=== PATIENT | female | born 1990 | race Caucasian/White ===

== ENCOUNTER 2021-12-30 14:14 | Outpatient (CLI) | payer OTHER, SELFPAY ==
[2021-12-30 19:55] LABS: Basophils Percent Auto 0.5 % (0.2-1.2); Eosinophils Absolute Auto 0.1 K/mm3 (0-0.3); Eosinophils Percent Auto 2.9 % (0-4.4); Hematocrit 38.9 % (37.0-47.0); Hemoglobin 12.8 g/dL (12.0-15.0); Immature Granulocyte Absolute 0.01 K/mm3 (0.00-0.031); Immature Granulocyte Percent A 0.2 % (0-0.5); Lymphocytes Absolute Auto 1.27 K/mm3 (0.9-3.2); Lymphocytes Percent Auto 31.1 % (18.3-44.2); Mean Corpuscular HGB Conc 32.9 g/dl (32-36); Mean Corpuscular Hemoglobin 29.8 pg (26-34); Mean Corpuscular Volume 90.5 fl (80-100); Mean Platelet Volume 10.4 fl (7.4-10.4); Monocytes Absolute Auto 0.4 K/mm3 (0.1-0.6); Monocytes Percent Auto 9.1 % (2.6-8.5); Neutrophils Absolute Auto 2.3 K/mm3 (1.3-6.7); Neutrophils Percent Auto 56.2 % (45.5-73.1); Platelet Count Result 226 k/mm3 (150-375); Red Cell Distribution Width 12.6 % (11.5-14.5); White Blood Count 4.1 K/mm3 (4.5-10.0)
[2021-12-30 20:39] LABS: Alanine Aminotransferase 24 U/L (6-35); Albumin Level 4.7 g/dL (3.5-5.1); Alkaline Phosphatase 47 U/L (38-126); Anion Gap 9 mmol/L (8-16); Aspartate Amino Transferase 62 U/L (14-36); Bilirubin,Total 0.6 mg/dL (0.2-1.3); Blood Urea Nitrogen 15 mg/dL (7-17); Calcium 9.1 mg/dL (8.4-10.2); Carbon Dioxide 25 mmol/L (22-30); Chloride 104 mmol/L (98-107); Cholesterol 154 mg/dL (0-200); Estimated Glomerular Filt Rate > 60; Glucose 82 mg/dL (65-110); HDL Direct 60 mg/dL; Potassium 4.1 mmol/L (3.4-5.0); Sodium 138 mmol/L (137-145); Triglycerides 47 mg/dL (<150)
[2021-12-30 20:50] LABS: LDL Cholesterol Direct 67 mg/dL
[2022-01-02 12:04] LABS: Vitamin D 25 Hydroxy 31.7 ng/mL
[2022-01-04 08:34] LABS: Alpha-Tocopherol 8.7 mg/L (5.7-19.9); Beta-Gamma Tocopherol <1.0 mg/L (<=4.3); Vitamin A 35 mcg/dL (38-98)
== END 2021-12-30 14:15 | disposition home or self-care (01) ==
PROVIDERS: PCP Family Medicine; Visit Provider Family Medicine
DX: K58.9 Irritable bowel syndrome, unspecified (principal); Z00.00 Encounter for general adult medical examination without abnormal findings
CPT/HCPCS: 36415; 80053; 80061; 82306; 82607; 84446; 84590; 85025; 86003

== ENCOUNTER 2022-01-03 14:08 | Outpatient (CLI) | payer OTHER, SELFPAY ==
[2022-01-12 22:32] LABS: Pancreatic Elastase, Stool >500 mcg/g
== END 2022-01-03 14:09 | disposition home or self-care (01) ==
LOC: ANHBWCLAB 14:09
PROVIDERS: PCP Family Medicine; Visit Provider Family Medicine
DX: Z00.00 Encounter for general adult medical examination without abnormal findings (principal)
CPT/HCPCS: 82653

== ENCOUNTER 2022-02-27 07:46 | Outpatient (CLI) | payer OTHER, SELFPAY ==
[2022-02-27 19:00] LABS: Alanine Aminotransferase 26 U/L (6-35); Albumin Level 4.4 g/dL (3.5-5.1); Alkaline Phosphatase 47 U/L (38-126); Amylase 100 U/L (30-110); Aspartate Amino Transferase 58 U/L (14-36); Bilirubin,Total 0.4 mg/dL (0.2-1.3); Lipase 209 U/L (23-300)
[2022-02-27 19:30] LABS: Hepatitis B Surface Antigen Negative (Negative)
[2022-02-27 19:48] LABS: Hepatitis C Virus Antibody Negative (Negative)
[2022-02-27 19:59] LABS: HAV RESULT Negative (Negative); Hepatitis B Core IgM Result Negative (Negative)
[2022-03-02 09:50] LABS: Gliadin AB, IgG <1.0 U/mL (<15.0); TTG IGA AB <1.0 U/mL (<15.0); Tissue Transglutaminase IgA Ab <1.0 U/mL (<15.0)
[2022-03-02 13:43] LABS: Endomysial Ab (IgA) Screen Negative (Negative)
== END 2022-02-27 07:47 | disposition home or self-care (01) ==
LOC: ANHBWCLAB 07:47
PROVIDERS: PCP Family Medicine; Visit Provider Family Medicine
DX: R74.01 Elevation of levels of liver transaminase levels (principal); K58.9 Irritable bowel syndrome, unspecified; R10.9 Unspecified abdominal pain
CPT/HCPCS: 36415; 80074; 80076; 82150; 83516; 83690; 86255

== ENCOUNTER 2022-03-08 11:21 | Outpatient (CLI) | payer OTHER, SELFPAY ==
[2022-03-16 16:18] LABS: Calprotectin, Stool 67 mcg/g
== END 2022-03-08 11:22 | disposition home or self-care (01) ==
LOC: ANHBWCLAB 11:21
PROVIDERS: PCP Family Medicine; Visit Provider Family Medicine
DX: K58.9 Irritable bowel syndrome, unspecified (principal); R10.9 Unspecified abdominal pain
CPT/HCPCS: 83993

== ENCOUNTER 2022-07-04 11:40 | Outpatient (CLI) | payer OTHER, SELFPAY ==
[2022-07-04 21:23] LABS: Appearance Urine Clear (Clear); Bacteria Urine Rare /hpf; Bilirubin Urine Negative (Negative); Blood Urine 1+ (Negative); Color Urine Yellow (Yellow); Glucose Urine UA Negative (Negative); Ketones Urine Negative (Negative); Leukocyte Esterase Ur 3+ LEU/UL (Negative); Nitrate Urine Negative (Negative); Non Pathogenic Casts 0-2; Protein Urine Trace mg/dL (Negative); Specific Grav Ur 1.008 (1.001-1.035); Squamous Epithelial Cell Urine None seen /hpf (Few); Urobilinogen Urine 0.2 mg/dL (<2.0); WBC Urine 51-100 /hpf
[2022-07-04 21:25] LABS: Add Urine Microscopic? YES
== END 2022-07-04 11:41 | disposition home or self-care (01) ==
LOC: ANHBWCLAB 11:42
PROVIDERS: PCP Family Medicine; Visit Provider Family Medicine
DX: R31.9 Hematuria, unspecified (principal)
CPT/HCPCS: 81001; 87077; 87086; 87088

== ENCOUNTER 2022-07-18 12:16 | Outpatient (CLI) | payer OTHER, SELFPAY ==
[2022-07-18 20:36] LABS: Appearance Urine Cloudy (Clear); Bacteria Urine 3+ /hpf; Bilirubin Urine Negative (Negative); Blood Urine 2+ (Negative); Color Urine Yellow (Yellow); Glucose Urine UA Negative (Negative); Ketones Urine Negative (Negative); Leukocyte Esterase Ur 3+ LEU/UL (Negative); Nitrate Urine Negative (Negative); Protein Urine Trace mg/dL (Negative); RBC Urine 21-50 /hpf (0-2); Specific Grav Ur 1.012 (1.001-1.035); Squamous Epithelial Cell Urine None seen /hpf (Few); Urobilinogen Urine 0.2 mg/dL (<2.0); WBC Urine >100 /hpf; pH Urine 7.5 (5.0-9.0)
[2022-07-18 20:39] LABS: Add Urine Microscopic? YES
== END 2022-07-18 12:17 | disposition home or self-care (01) ==
LOC: ANHBWCLAB 12:17
PROVIDERS: PCP Family Medicine; Visit Provider Nurse Practitioner
DX: R30.0 Dysuria (principal); R39.15 Urgency of urination
CPT/HCPCS: 81001; 87077; 87086; 87088

== ENCOUNTER 2023-05-07 09:51 | Outpatient (CLI) | payer OTHER, SELFPAY ==
[2023-05-07 18:35] LABS: Hematocrit 41.4 % (37.0-47.0); Hemoglobin 13.5 g/dL (12.0-15.0); Mean Corpuscular HGB Conc 32.6 g/dl (32-36); Mean Corpuscular Hemoglobin 30.5 pg (26-34); Mean Corpuscular Volume 93.7 fl (80-100); Mean Platelet Volume 9.6 fl (7.4-10.4); Platelet Count Result 255 k/mm3 (150-375); Red Blood Count 4.42 M/mm3 (4.2-5.4); Red Cell Distribution Width 12.9 % (11.5-14.5); White Blood Count 4.5 K/mm3 (4.5-10.0)
[2023-05-07 19:02] LABS: Alanine Aminotransferase 16 U/L (6-35); Albumin Level 4.3 g/dL (3.5-5.1); Alkaline Phosphatase 48 U/L (38-126); Anion Gap 4 mmol/L (8-16); Aspartate Amino Transferase 59 U/L (14-36); Bilirubin,Total 0.5 mg/dL (0.2-1.3); Blood Urea Nitrogen 12 mg/dL (7-17); Carbon Dioxide 27 mmol/L (22-30); Chloride 105 mmol/L (98-107); Cholesterol 170 mg/dL (0-200); Estimated Glomerular Filt Rate > 60; Glucose 81 mg/dL (65-110); HDL Direct 81 mg/dL; Magnesium 2.5 mg/dL (1.6-2.3); Potassium 4.2 mmol/L (3.4-5.0); Sodium 136 mmol/L (137-145); Triglycerides 59 mg/dL (<150)
[2023-05-07 19:14] LABS: LDL Cholesterol Direct 75 mg/dL
[2023-05-07 19:54] LABS: Vitamin D 25 Hydroxy 35.1 ng/mL
== END 2023-05-07 09:52 | disposition home or self-care (01) ==
LOC: ANHBWCLAB 09:53
PROVIDERS: PCP Family Medicine; Visit Provider Family Medicine
DX: Z00.00 Encounter for general adult medical examination without abnormal findings (principal); R10.9 Unspecified abdominal pain; K58.9 Irritable bowel syndrome, unspecified; R74.01 Elevation of levels of liver transaminase levels; M62.89 Other specified disorders of muscle
CPT/HCPCS: 36415; 80053; 80061; 82306; 82607; 83735; 85027

== ENCOUNTER 2023-06-09 08:39 | Outpatient (CLI) | payer OTHER, SELFPAY ==
[2023-06-09 09:21] LABS: Cholesterol 161 mg/dL (0-200); HDL Direct 89 mg/dL; Triglycerides 49 mg/dL (<150)
[2023-06-09 09:36] LABS: LDL Cholesterol Direct 67 mg/dL
[2023-06-09 10:37] LABS: Chlamydia trachomatis DETECTED (NOT DETECTE); Neisseria gonorrhoeae PCR NOT DETECTED (NOT DETECTE)
[2023-06-11 16:53] LABS: Rapid Plasma Reagin Non-Reactive (NonReactive)
[2023-06-12 12:29] LABS: HIV 1 2 Ag Ab 4th Gen w Rflxs Nonreactive (Nonreactive)
== END 2023-06-09 08:40 | disposition home or self-care (01) ==
PROVIDERS: PCP Family Medicine; Visit Provider Family Medicine
DX: Z00.00 Encounter for general adult medical examination without abnormal findings (principal); K58.9 Irritable bowel syndrome, unspecified; R10.9 Unspecified abdominal pain; R74.01 Elevation of levels of liver transaminase levels
CPT/HCPCS: 36415; 80061; 86592; 87389; 87491; 87591

== ENCOUNTER 2023-07-31 11:19 | Outpatient (CLI) | payer OTHER, SELFPAY ==
[2023-07-31 19:10] LABS: Free T4 Free Thyroxine 1.35 ng/mL (0.78-2.19)
[2023-07-31 21:24] LABS: Thyroid Stimulating Hormone 0.964 uIU/mL (0.465-4.680)
[2023-08-02 07:18] LABS: Thyroid Peroxidase Antibodies 15 IU/mL (<9)
== END 2023-07-31 11:20 | disposition home or self-care (01) ==
LOC: ANHBWCLAB 11:20
PROVIDERS: PCP Family Medicine; Visit Provider Family Medicine
DX: R94.6 Abnormal results of thyroid function studies (principal)
CPT/HCPCS: 36415; 84439; 84443; 84481; 86376

== ENCOUNTER 2024-01-08 12:19 | Outpatient (CLI) | payer OTHER, SELFPAY ==
[2024-01-08 18:47] LABS: Hematocrit 41.3 % (37.0-47.0); Hemoglobin 13.9 g/dL (12.0-15.0); Mean Corpuscular HGB Conc 33.7 g/dl (32-36); Mean Corpuscular Hemoglobin 31.4 pg (26-34); Mean Corpuscular Volume 93.4 fl (80-100); Platelet Count Result 309 k/mm3 (150-375); Red Blood Count 4.42 M/mm3 (4.2-5.4); Red Cell Distribution Width 13.1 % (11.5-14.5); White Blood Count 6.6 K/mm3 (4.5-10.0)
[2024-01-08 19:17] LABS: Alanine Aminotransferase 25 U/L (6-35); Albumin Level 4.9 g/dL (3.5-5.1); Alkaline Phosphatase 57 U/L (38-126); Anion Gap 10 mmol/L (4-12); Aspartate Amino Transferase 45 U/L (14-36); Bilirubin,Total 0.8 mg/dL (0.2-1.3); Blood Urea Nitrogen 11 mg/dL (7-17); Calcium 9.7 mg/dL (8.4-10.2); Carbon Dioxide 26 mmol/L (22-30); Chloride 101 mmol/L (98-107); Estimated Glomerular Filt Rate > 60; Glucose 87 mg/dL (65-110); Potassium 4.1 mmol/L (3.4-5.0); Sodium 137 mmol/L (137-145)
[2024-01-08 19:20] LABS: Free T4 Free Thyroxine 1.39 ng/mL (0.78-2.19); Vitamin D 25 Hydroxy 33.9 ng/mL
== END 2024-01-08 12:20 | disposition home or self-care (01) ==
LOC: ANHBWCLAB 12:20
PROVIDERS: PCP Family Medicine; Visit Provider Family Medicine
DX: Z00.00 Encounter for general adult medical examination without abnormal findings (principal); E55.9 Vitamin D deficiency, unspecified; R94.6 Abnormal results of thyroid function studies; R74.01 Elevation of levels of liver transaminase levels
CPT/HCPCS: 36415; 80053; 82248; 82306; 84439; 84443; 85027

== ENCOUNTER 2024-02-04 13:33 | Outpatient (CLI) | payer OTHER, SELFPAY ==
[2024-02-04 22:03] LABS: Chlamydia trachomatis NOT DETECTED (NOT DETECTE); Neisseria gonorrhoeae PCR NOT DETECTED (NOT DETECTE)
[2024-02-05 07:12] LABS: Rapid Plasma Reagin Non-Reactive (NonReactive)
[2024-02-06 06:39] LABS: HIV 1 2 Ag Ab 4th Gen w Rflxs NON-REACTIVE (NON-REACTIVE)
== END 2024-02-04 13:34 | disposition home or self-care (01) ==
PROVIDERS: PCP Family Medicine; Visit Provider Family Medicine
DX: M62.89 Other specified disorders of muscle (principal)
CPT/HCPCS: 36415; 86592; 87389; 87491; 87591

== ENCOUNTER 2024-09-16 11:02 | Outpatient (CLI) | payer BC, SELFPAY ==
--- OUTSIDE RECORDS SUMMARY | 2024-09-16 11:28 | XMS_ITS | Clinical Summary ---
Author Organization [facility] Address [address] [place] [address] Phone Care Team Providers Care Expenditure Requisition Clerk Name Role Phone Tristan Alfonso MD Primary Care Provider [phone] Allergies No known active allergies Medications Multiple Vitamins-Minera ls (BARIATRIC MULTIVITAMINS/I SCARLET PO) Take by mouth. Active Motegrity 2 MG Tablet TAKE 1 TABLET BY MOUTH EVERY MORNING 12/22/2020 Active Active Problems No known active problems Social History Tobacco Use Types Packs/Day Years Used Date Smoking Tobacco: Never Smokeless Tobacco: Never Tobacco Cessation:Counseling Given: Yes Alcohol Use Standard Drinks/Week Comments Not Currently 0 (1 standard drink = 0.6 oz pur e alcohol) AUDIT-C Answer Date Recorded Q1: How often do you have a drink containing alc ohol? 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 Gender Identity Not on file Sexual Orientation Not on file Last Filed Vital Signs Vital Sign Reading Time Taken Comments Blood Pressure 100/64 04/18/2021 9:26 AM CLAY HOUSE WORKER Pulse 78 04/18/2021 9:26 AM CLAY HOUSE WORKER Temperature 36.3 C (97.3 F) 04/18/2021 9:26 AM CLAY HOUSE WORKER Respiratory Rate 18 04/18/2021 9:26 AM CLAY HOUSE WORKER Oxygen Saturation 98% 04/18/2021 9:26 AM CLAY HOUSE WORKER Inhaled Oxygen Concentration - - Weight 62.6 kg (138 lb) 04/18/2021 9:26 AM CLAY HOUSE WORKER Height 165.1 cm (5' 5) 03/21/2020 8:10 AM CLAY HOUSE WORKER Body Mass Index 22.96 03/21/2020 8:10 AM CLAY HOUSE WORKER Plan of Treatment Health Maintenance Due Date Last Done Comments Hepatitis C Virus (HCV) Screening 1990 Human Papillomavirus (HPV) Immunization (1 - 3-dose series) 2006 Hepatitis B Immunization (1 of 3 - 19+ 3-dose series) 2010 SARS-COV-2 Immunization ( - 2023- season) 2023 Influenza Immunization (Seas on Ended) 2024 Respiratory Syncytial Virus (RSV) Immunization (Adult) (1 - 1-dose 75+ series) 2066 DTaP/Tdap/Td Immunization Discontinued 2015, 08/12/2013 TdaP Immunization Completed 03/28/2015, 08/12/2013 Meningococcal Immunization (ACWY) Aged Out No longer eligible based on patient's age to complete this topic Pneumococcal Immunization Combined Aged Out No longer eligible based on patient's age to complete this topic Rotavirus Immunization Aged Out No lo nger eligible based on patient's age to complete this topic Insurance OAP Care Teams Expenditure Requisition Clerk Relationship Specialty Start Date End Date Tristan Alfonso MD [address] [place] [address] PCP - General Internal Medicine 02/20/20
--- OUTSIDE RECORDS SUMMARY | 2024-09-16 11:28 | XMS_ITS | Referral Summary ---
Author Organization [facility] [address] Address [address] [place] [address] Care Team Providers Care Paraprofessional Aide Teacher Name Role Phone Prakash Perkins MD Primary Care Provider [phone] Encounters Date Type Department Care Team Description 09/10/2024 Orders Only Miguel Sullivan [address] [facility] [address] [place] [address] Nikki Paz NP Cyst of ovary, unspecified laterality (Primary Dx) 09/10/2024 Results Follow-Up Miguel Sullivan [address] [facility] [address] [place] [address] Nikki Paz, GLENIS US Pelvis W Endovaginal 08/18/2024 Telephone Miguel Sullivan [address] [facility] [address] [place] [address] Emily Bowman 08/17/2024 11:30 AM CDT Office Visit [facility] [address] [facility] [address] [place] [phone] Noemy Sotomayor NP Laceration of left ankle, initial encounter (Primary Dx) 08/15/2024 Telephone Miguel Sullivan [address] [facility] [address] [place] [address] Emily Bowman 08/14/2024 Telephone Miguel Sullivan [address] [facility] [address] [place] [address] Emily Bowman 08/04/2024 2:30 PM CDT Ancillary Procedure Carolinekarly Sullivan [address] [facility] [address] [place] [address] History of ovarian cyst 07/02/2024 Results Follow-Up [facility] Cardiology [address] [facility] [address] [place] [address] Gissel Santos NP Stress Echo Exercise W Doppler/CF 06/27/2024 Results Follow-Up Miguelkarly [facility] [address] [facility] [address] [place] [address] Nikki Paz NP US Pelvis W Endovaginal 06/23/2024 9:15 AM CDT Ancillary Procedure [facility] Cardiology [address] [place] [address] Other chest pain from Last 3 Months Allergies No known active allergies Medications ondansetron ODT (ZOFRAN-ODT) 4 mg disintegrating tablet Dissolve 1 tablet for mild to moderate nausea or vomiting or 2 tablets for severe nausea or vomiting oral twice a day as needed. 15 tablet 05/01/19 20 Active gsdraoaz-bpm-fmwzz us sulfate (One Daily Multi-Vit w-Mineral) 4.5 mg iron powder in packet Take by mouth Active cholecalciferol (VITAMIN D-3) 50,000 unit capsule Take 1 capsule (50,000 Units total) by mouth 07/30/19 24 Active doxycycline (ADOXA) 100 mg tablet Take 1 tablet (100 mg total) by mouth 2 (two) times a day 06/11/19 24 Active modafiniL (PROVIGIL) 200 mg tablet Take 1 tablet (200 mg total) by mouth daily as needed 05/08/19 24 Active etonogestreL-ethin yl estradioL (NUVARING, ELURYNG) 0.12-0.015 mg/24 hr vaginal ringIndications:Pr egnancy Contraception Insert vaginally and leave in place for 3 consecutive weeks, then remove for 1 week. 3 each 1 02/12/20 24 025 Active cephalexin (KEFLEX) 500 mg capsuleIndications :Laceration of left ankle, initial encounter Take 1 capsule (500 mg total) by mouth 2 (two) times a day for 7 days 14 capsule 08/18/19 25 025 Active Problems Problem Noted Date Diagnosed Date Other chest pain 05/19/2024 Contraceptive management 02/12/2024 Assessment & Plan (02/13/2024 8:07 AM WHOLESALE MANAGER): Discussed all control options available to patient at visit. Patient was counseled on benefits as well as side effects and risks of each method. - Patient informed that any form of control can make some women prone to wait gain, however studies show that most methods use today have very low percentage of weight gain listed as adverse effect. Depo-Provera, however has been shown to have higher percentage of weight gain. Patient is specifically interested the ParaGard IUD. I did inform patient this is a very effective long-term method against , however it will not help with her irregular menstrual cycles. Patient is going to check with insurance to see if ParaGard discovered. I did mentioned [facility] For now we are going to try the NuvaRing for cycle management and contraception. Usage instructions given, backup method x1 month advised. Prescription sent to pharmacy. Irregular menstrual cycle 02/12/2024 Cervical strain 02/24/2019 Assessment & Plan (02/24/2019 1:13 PM WHOLESALE MANAGER): Assessment Cervical strain. Plan Acceptance of her condition from a cervical spine standpoint. The patient may need for further work-up with Dr. Casanova for evaluation of thoracic outlet syndrome. Immunizations Immunization Administration Dates Next Due Tdap 08/17/2024 Social History Tobacco Use Types Packs/Day Years Used Date Smoking Tobacco: Former Cigarettes Q uit: 2013 Smokeless Tobacco: Never Tobacco Cessation:Counseling Given: Not Answered Alcohol Use Standard Drinks/Week Comments Never 0 (1 standard drink = 0.6 oz pur e alcohol) AUDIT-C Answer Date Recorded Frequency of Alcohol Consumption Never 01/02/2019 Average Number of Drinks Not on file 019 Frequency of Binge Drinking Not on file 12/17 PHQ-2 Answer Date Recorded PHQ-2 Score 0 02/19/2019 Personal Safety Answer Date Recorded Have you ever been in or are you currently in a harmful physical or emotional relationship or is someone making you feel afraid or unsafe? Denies 12/18/2023 Comments No Sex and Gender Information Value Date Recorded Sex Assigned at Not on file Legal Sex Female 11:29 PM WHOLESALE MANAGER Gender Identity Not on file Sexual Orientation Not on file Last Filed Vital Signs Vital Sign Reading Time Taken Comments Blood Pressure 120/80 08/17/2024 11:27 AM CDT Pulse 85 08/17/2024 11:27 AM CDT Temperature 36.6 C (97.8 F) 08/17/2024 11:27 AM CDT Respiratory Rate 12 08/17/2024 11:27 AM CDT Oxygen Saturation 99% 08/17/2024 11:27 AM CDT Inhaled Oxygen Concentration - - Weight 64.4 kg (142 lb) 08/17/2024 11:27 AM CDT Height 165.1 cm (5' 5) 08/17/2024 11:27 AM CDT Body Mass Index 23.63 08/17/2024 11:27 AM CDT Plan of Treatment Not on file Procedures Procedure Name Priority Date/Time Associated Diagnosis Comments US PELVIS W ENDOVAGINAL Routine 08/04/2024 2:49 PM CDT History of ovarian cyst STRESS ECHO EXERCISE WO DOPPLER/CF WO CONTRAST Routine 06/23/2024 9:55 AM CDT Other chest pain HEPATITIS C ANTIBODY Routine 08/21/2023 2:13 PM CDT Screening for STD (sexually transmitted disease) PAP AND HPV, REFLEX TO HPV GENOTYPES Routine 08/21/2023 2:10 PM CDT Well woman exam from Last 3 Months or Most Recently Relevant to Health Maintenance Results * US Pelvis W Endovaginal (08/04/2024 2:49 PM CDT) Cul de Sac Free fluid visualized VIEWPOINT Endometrial Thickness 10.3 mm&millim eters VIEWPOINT Anatomical Region Laterality Modality Pelvis N/A Ultrasound 08/04/2024 2:26 PM CDT Impressions 08/11/2024 9:37 PM CDT 1. Normal appearing uterus. 2. Normal appearing right ovary. 3. Left ovary contains a complex area measuring 26 x 15 x 28 mm thought to be an involuting cyst. Previously seen septated cyst is not seen. Consider another repeat TV US in 8 weeks to assure resolution. 4. Trace fluid in the cul-de-sac. Narrative Procedure Note Jax Carroll MD - 08/11/2024 IMPRESSION: 1. Normal appearing uterus. 2. Normal appearing right ovary. 3. Left ovary contains a complex area measuring 26 x 15 x 28 mm thoughtto be an involuting cyst. Previously seen septated cyst is not seen.Consider another repeat TV US in 8 weeks to assure resolution. 4. Trace fluid in the cul-de-sac. us Nikki Paz PRIMER CHARGER IMG US PROCEDURES Final Result * STRESS ECHO EXERCISE WO DOPPLER/CF WO CONTRAST (06/23/2024 9:55 AM CDT) Anatomical Region Laterality Modality Ultrasound 06/23/2024 9:05 AM CDT Narrative 06/23/2024 3:42 PM CDT [facility] Cardiology [address] [facility] [address] [address] [address] [facility] [address] [place] [address], [place] [address] P:[phone] P:[phone] Echocardiographic Report Patient Name: PAM MCWILLIAMS : 1990 Study Date: 06/23/2024 9:05:06 AM Gender: F Tech: Location: [facility] Provider: CHRISTIANO AVILES Height(Cm): 165 BSA: 1.72 Weight(Kg): 64.4 Heart Rate: 79 BP: 118/72 Quality: Good Order Provider: CHRISTIANO AVILES PROCEDURES: Stress Echo Report: Treadmill stress echocardiogram. INDICATIONS: Chest Pain, Medications: Vitamin D3, Multivitamin, and Stress test monitored by: Jessica Ruiz RN. FINDINGS: Stress Echo: Protocol - Anish Protocol. Exercise Time - 11.00 min Baseline Heart Rate - 101 Peak Heart Rate - 175 Predicted Maximal Heart Rate - 187 85% MPHR - 159 Baseline BP - 118/72 Peak BP - 154/80 Rate Pressure Product - 51735 METS Achieved - 12.80 Percent Predicted Maximal HR Achieved - 94 % Interpretation Site: Exam was interpreted at [facility]. Performance: Average exercise functional capacity. Hemodynamic Response: Normal blood pressure response. Termination: Fatigue. Resting ECG: Normal sinus rhythm. Non-specific T-wave flattening. Exercise ECG: Normal exercise ECG. Resting LV Function: Normal left ventricular size, normal systolic function, normal wall thickness with no segmental wall motion abnormalities at rest. Post Stress LV Function: Post exercise left ventricular global systolic contractility is hyperdynamic, no segmental wall motion abnormalities, and chamber size is smaller. CONCLUSIONS: Protocol - Anish Protocol. Exercise Time - 11.00 min. Baseline Heart Rate - 101. Peak Heart Rate - 175. Predicted Maximal Heart Rate - 187. 85% MPHR - 159. Baseline BP - 118/72. Peak BP - 154/80. Rate Pressure Product - 41586. METS Achieved - 12.80. Percent Predicted Maximal HR Achieved - 94 %. Normal sinus rhythm. Non-specific T-wave flattening. Normal exercise ECG. Normal left ventricular size, normal systolic function, normal wall thickness with no segmental wall motion abnormalities at rest. Post exercise left ventricular global systolic contractility is hyperdynamic, no segmental wall motion abnormalities, and chamber size is smaller. Stress echocardiogram negative for inducible ischemia at MPHR: 94 %. Electronically Signed By: Christiano Aviles MD, [facility] 06/23/2024 3:42:00 PM CDT Procedure Note Christiano Aviles MD - 06/23/2024 [facility] Cardiology [address] [facility] [address], [place] [id number] [address] [facility] [address], [place] [address] P:[phone] P:[phone] Echocardiographic Report Patient Name: PAM MCWILLIAMS : 1990 Study Date: 06/23/2024 9:05:06 AM Gender: F Tech: Location: [place] Ref Provider: CHRISTIANO AVILES Height(Cm): 165 BSA: 1.72 Weight(Kg): 64.4 Heart Rate: 79 BP: 118/72 Quality: Good Order Provider: CHRISTIANO AVILES PROCEDURES: Stress Echo Report: Treadmill stress echocardiogram. INDICATIONS: Chest Pain, Medications: Vitamin D3, Multivitamin, and Stress testmonitored by: Jessica Ruiz RN. FINDINGS: Stress Echo: Protocol - Anish Protocol. Exercise Time - 11.00 min Baseline Heart Rate - 101 Peak Heart Rate - 175 Predicted Maximal Heart Rate - 187 85% MPHR - 159 Baseline BP - 118/72 Peak BP - 154/80 Rate Pressure Product - [id number] METS Achieved - 12.80 Percent Predicted Maximal HR Achieved - 94 % Interpretation Site: Exam was interpreted at [facility]. Performance: Average exercise functional capacity. Hemodynamic Response: Normal blood pressure response. Termination: Fatigue. Resting ECG: Normal sinus rhythm. Non-specific T-wave flattening. Exercise ECG: Normal exercise ECG. Resting LV Function: Normal left ventricular size, normal systolic function, normal wallthickness with no segmental wall motion abnormalities at rest. Post Stress LV Function: Post exercise left ventricular global systolic contractility ishyperdynamic, no segmental wall motion abnormalities, and chamber size is smaller. CONCLUSIONS: Protocol - Anish Protocol. Exercise Time - 11.00 min. Baseline Heart Rate- 101. Peak Heart Rate - 175. Predicted Maximal Heart Rate - 187. 85% MPHR - 159.Baseline BP - 118/72. Peak BP - 154/80. Rate Pressure Product - [id number]. METS Achieved -12.80. Percent Predicted Maximal HR Achieved - 94 %. Normal sinus rhythm. Non-specific T-wave flattening. Normal exercise ECG. Normal left ventricular size, normal systolic function, normal wallthickness with no segmental wall motion abnormalities at rest. Post exercise left ventricular global systolic contractility ishyperdynamic, no segmental wall motion abnormalities, and chamber size is smaller. Stress echocardiogram negative for inducible ischemia at MPHR: 94 %. Electronically Signed By: Christiano Aviles MD, [facility] 06/23/2024 3:42:00 PM CDT us Christiano Aviles MD CV ECHO PROCEDURES Final Result * Hepatitis C antibody Blood (08/21/2023 2:13 PM CDT) Pathologist [facility] Hep C Ab Nonreactive Nonreactive Comment: Interpretive Data Nonreactive: Antibodies to HCV not detected. Does NOT exclude the possibility of recent exposure to HCV. Equivocal: Equivocal for HCV antibodies. Supplemental molecular testing will be automatically performed to determine infection status in accordance with current CDC screening recommendations. Reactive: Positive for HCV antibodies. This may represent current or past HCV infection. Supplemental molecular testing will be automatically performed to determine current infection status in accordance with current CDC screening recommendations. Interpretive data was last revised on 2019. Testing performed by: [facility], [address] [place] [address]., [id number] Blood 08/21/2023 2:13 PM CDT 08/21/2023 8:29 PM CDT us Nikki Paz PRIMER CHARGER LAB MICROBIOLOGY - GENERAL ORDER NATALIA Edited Result - Final [facility] [place] [address] [facility] Department [place] [address] * Pap and HPV, reflex to HPV Genotypes (08/21/2023 2:10 PM CDT) Pathologist [facility] CLINICAL INFORMATION: [facility] Comment:Routine exam LMP [facility] Comment:[id number] Previous Pap [facility] Comment:NONE GIVEN Prev. Bx [facility] Comment:NONE GIVEN SOURCE: [facility] Comment:Cervix, Endocervix Pap, specimen adequacy [facility] Comment: Satisfactory for evaluation. Endocervical/transformation zone component present. HPV interp [facility] Comment: Cytology Results: Negative for intraepithelial lesion or malignancy. Reactive cellular changes associated with repair COMMENTS [facility] Comment: This Pap test has been evaluated with computer assisted technology. HYPERKERATOSIS Carry Out Clerk Que [facility] Comment: CAN, CT(ASCP) CT screening location: [place] [address] Administration MABEL Bauman [address] Pathologist [facility] Comment: Jean-Pierre Vega M.D., Board Certified in Anatomic Pathology and Cytopathology. (electronic signature) Comment [facility] Comment: EXPLANATORY NOTE: The Pap is a screening test for cervical cancer. It is not a diagnostic test and is subject to false negative and false positive results. It is most reliable when a satisfactory sample, regularly obtained, is submitted with relevant clinical findings and history, and when the Pap result is evaluated along with historic and current clinical information. Human papillomavirus DNA, High Risk E6/E7 Not Detected NOT DETECTED Adeel Mojica /Marti [place] eusebio [place] Comment: Not Detected High Risk HPV types (16,18,31,33,35,39,45,51,52, 56,58,59,66,68) were not detected. Other HPV types which cause anogenital lesions may be present. The significance of the other types of HPV in malignant processes has not been established. Methodology: Real Time PCR Thin prep 08/21/2023 2:10 PM CDT 08/22/2023 3:31 AM CDT Nikki Paz PR[facility] LAB CYTOLOGY ORDERABLES Final Re sult [facility] [address] [address] [place] [address] Adeel Mojica[place] [address] [facility] [place] [address] from Last 3 Months or Most Recently Relevant to Health Maintenance Insurance [place] [id number] [place] [id number] [place] [address] [employer] [facility] Member Subscriber Plan / Payer (Ef fective for All Dates) Name:Pam Mcwilliams Member ID:[id number] Relation to Subscriber:Self Name:Pam Mcwilliams Subscriber ID:[id number] Payer ID:[id number] Type:[employer] HMO/PPO Address: [address] [address] [place] [id number] Care Teams Paraprofessional Aide Teacher Relationship Specialty Start Date End Date Prakash [place] MD PCP - General Family Practice 04/20/22
--- OUTSIDE RECORDS SUMMARY | 2024-09-16 11:28 | XMS_ITS | Encounter Summary ---
Author Organization [facility] Healthcare Address [address] [place] [address] Care Team Providers Care Hardwood Faller Name Role Phone Prakash [place] MD Primary Care Provider [phone] Encounter Details Date Type Department Care Team (Late st Contact Info) Description 09/10/2024 Results Follow-Up [facility] [address] [facility] [address] [place] [address] Nikki Paz, HOTEL ASSISTANT MANAGER [address] [facility] [address] [address] US Pelvis W Endovaginal Social History Tobacco Use Types Packs/Day Years Used Date Smoking Tobacco: Former Cigarettes Q uit: 2013 Smokeless Tobacco: Never Alcohol Use Standard Drinks/Week Comments Never 0 [...] on file 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
--- OUTSIDE RECORDS SUMMARY | 2024-09-16 11:28 | XMS_ITS | Clinical Summary ---
Author Organization [facility] [address] [place] [address] Care Team Providers Care Mold Clamper Name Role Phone Prakash Perkins MD Primary Care Provider [phone] Allergies No known active allergies Medications ondansetron ODT (ZOFRAN-ODT) 4 mg disintegrating tablet Dissolve 1 tablet for mild to moderate nausea or vomiting or 2 tablets for severe nausea or vomiting oral twice a day as needed. 15 tablet 05/01/19 20 Active iugxbeio-vot-qspay us sulfate (One Daily Multi-Vit w-Mineral) 4.5 [...] 02/12/2024 Assessment & Plan (02/13/2024 8:07 AM [employer]): Discussed all control options available to patient [...] 02/24/2019 Assessment & Plan (02/24/2019 1:13 PM [employer]): Assessment Cervical strain. Plan Acceptance of her condition from a cervical spine standpoint. The patient may need for further work-up with Dr. Casanova for evaluation of thoracic outlet syndrome. Encounters Date Type Department Care Team Description 09/10/2024 Orders Only Miguel Sullivan [address] [place] [address] [address] [place] [address] Nikki Paz NP Cyst of ovary, unspecified laterality (Primary Dx) 09/10/2024 Results Follow-Up Miguel Sullivan [address] [place] [address] [address] [place] [address] Nikki Paz, GLENIS US Pelvis W Endovaginal 08/18/2024 Telephone [facility] [address] [place] [address] [address] [place] [address] Emily Bowman 08/17/2024 11:30 AM CDT Office Visit [facility] at [address] [place] [phone] Noemy Sotomayor NP Laceration of left ankle, initial encounter (Primary Dx) 08/15/2024 Telephone [facility] [address] [facility] [address] [place] [phone] Emily Bowman 08/14/2024 Telephone [facility] [address] [facility] [address] [place] [phone] Emily Bowman 08/04/2024 2:30 PM CDT Ancillary Procedure Miguel [facility] [address] [facility] [address] [place] [address] History of ovarian cyst 07/02/2024 Results Follow-Up [facility] [address] [facility] [address], [place] [address] Gissel Santos NP Stress Echo Exercise W Doppler/CF 06/27/2024 Results Follow-Up [facility] [address] [facility] [address] [place] [phone] Nikki Paz NP US Pelvis W Endovaginal 06/23/2024 9:15 AM CDT Ancillary Procedure [facility] Cardiology [address] [place] [phone] Other chest pain from Last 3 Months Immunizations Immunization Administration Dates Next Due Tdap 08/17/2024 Surgical History Surgery Date Site/Laterality Comments OTHER SURGICAL HISTORY oral surg. @ [facility] STOMACH SURGERY HERNIA REPAIR BARIATRIC SURGERY 03/19/2018 - 03/18/2019 BREAST SURGERY implants ABDOMINAL SURGERY tummy tuck ARM SURGERY arm lift Medical History Medical History Date Comments Anxiety Depression Cysts of both ovaries GERD (gastroesophageal reflux disease) Family History Medical History Relation Name Comments No Known Problems Father Alzheimer's disease Maternal Grandfather Diabetes Maternal Grandmother Heart attack Mother Ovarian cancer Mother Stroke Mother Breast cancer Neg Hx Relation Name Status Comments Father Maternal Grandfather Maternal Grandmother Mother Alive Social History Tobacco Use Types Packs/Day Years [...] on file Legal Sex Female 11:29 PM [employer] Gender Identity Not on file Sexual Orientation Not on file Obstetrics History Para Term AB IAB SAB Ectopic Multiple Livin g Live Births 2 1 1 0 1 0 0 0 0 1 1 Date Outcome GA Total Labor Labor/2nd/3rd Weight Sex Type Anes PTL Sabrina A1 A5 Name Clin AB 2016 Term Vag-S pont Living Complications:None Last Filed Vital Signs Vital Sign Reading [...] 08/17/2024 11:27 AM CDT Plan of Treatment Health Maintenance Due Date Last Done Comments Varicella Vaccines (1 of 2 - 13+ 2-dose series) 2004 Hepatitis B Screening 2009 Depression Screening 02/20/2020 02/19/2019, 02/19/2019 Regular Well Visit/Exam 18-64 07/27/2023, 07/20/2021 Cervical Cancer Screening 08/20/2024 08/21/2023 Influenza Vaccine (Season Ended) 2024 12/18/2022, 12/29/2021 DTaP/Tdap/Td Vaccine (4 - Td or Tdap) 08/17/2034 08/17/2024, 03/28/2015, 08/12/2013 Hepatitis C Screening Completed 08/21/2023 HPV Vaccines Aged Out No longer eligi ble based on patient's age to complete this topic Pneumococcal vaccine <65 Aged Out No longer eligible based on patient's age to complete this topic Procedures Procedure Name Priority Date/Time Associated Diagnosis [...] fluid in the cul-de-sac. us Nikki Paz NP IMG US PROCEDURES Final Result * STRESS ECHO EXERCISE WO DOPPLER/CF WO CONTRAST (06/23/2024 9:55 AM CDT) Anatomical Region Laterality Modality Ultrasound 06/23/2024 9:05 AM CDT Narrative 06/23/2024 3:42 PM CDT [facility] [address] [facility] [address], [place] [address] [address] [facility] [address], [place] [address] P:[phone] P:[phone] Echocardiographic Report Patient Name: PAM MCWILLIAMS : 1990 Study Date: 06/23/2024 9:05:06 AM Gender: F Tech: Location: [facility] Provider: CHRISTIANO AVILES Height(Cm): 165 BSA: 1.72 [...] BP - 154/80 Rate Pressure Product - 20017 METS Achieved - 12.80 Percent Predicted Maximal HR Achieved - 94 % Interpretation Site: Exam was interpreted at [facility]. Performance: Average exercise functional capacity. Hemodynamic Response: [...] BP - 154/80. Rate Pressure Product - 23127. METS Achieved - 12.80. Percent Predicted Maximal [...] %. Electronically Signed By: Christiano Aviles MD, [facility] 06/23/2024 3:42:00 PM CDT Procedure Note Christiano Aviles MD - 06/23/2024 [facility] [address] [facility] [address] [address] [address] [facility] [address], [place] [address] P:[phone] P:[phone] Echocardiographic Report Patient Name: PAM MCWILLIAMS : 1990 Study Date: 06/23/2024 9:05:06 AM Gender: F Tech: Location: [place] Ref Provider: CHRISTIANO AVILES Height(Cm): 165 BSA: [...] BP - 154/80 Rate Pressure Product - 59037 METS Achieved - 12.80 Percent Predicted Maximal HR Achieved - 94 % Interpretation Site: Exam was interpreted at [facility]. Performance: Average exercise functional capacity. Hemodynamic Response: [...] BP - 154/80. Rate Pressure Product - 83072. METS Achieved -12.80. Percent Predicted Maximal HR [...] %. Electronically Signed By: Christiano Aviles MD, FACC 06/23/2024 3:42:00 PM CDT us Christiano Aviles MD CV ECHO PROCEDURES Final Result * Hepatitis C antibody Blood (08/21/2023 2:13 PM CDT) Hep C Ab Nonreactive Nonreactive Comment: Interpretive [...] last revised on 2019. Testing performed by: [facility], [address] [place] [address]., [id number] Blood 08/21/2023 2:13 PM CDT 08/21/2023 8:29 PM CDT us Nikki Paz NP LAB MICROBIOLOGY - GENERAL ORDER NATALIA Edited Result - Final STEFANY BAZ (TERRE HAUTE [address] [facility] Department [place] [address] * Pap and HPV, reflex to HPV Genotypes (08/21/2023 2:10 PM CDT) CLINICAL INFORMATION: [facility] Comment:Routine exam LMP [employer] [facility] Comment:[phone] Previous Pap [facility] [employer] [facility] Comment:NONE GIVEN Prev. Bx [employer] [facility] Comment:NONE GIVEN SOURCE: [employer] [facility] Comment:Cervix, Endocervix Pap, specimen adequacy [facility] [employer] [facility] Comment: Satisfactory for evaluation. Endocervical/transformation zone component present. HPV interp [facility] [facility] Comment: Cytology Results: Negative for intraepithelial lesion or malignancy. Reactive cellular changes associated with repair COMMENTS [facility] [facility] Comment: This Pap test has been evaluated with computer assisted technology. HYPERKERATOSIS [employer] [facility] Comment: CAN, CT(ASCP) CT screening location: [place] [address] [address] M[address]EL Bauman [address] Pathologist [facility] Comment: Jean-Pierre Vega M.D., Board Certified in Anatomic Pathology and Cytopathology. (electronic signature) Comment [facility] Comment: EXPLANATORY NOTE: The Pap is a [...] High Risk E6/E7 Not Detected NOT DETECTED [facility] Comment: Not Detected High Risk HPV types (16,18,31,33,35,39,45,51,52, 56,58,59,66,68) were not detected. Other HPV types which cause anogenital lesions may be present. The significance of the other types of HPV in malignant processes has not been established. Methodology: Real Time PCR Thin prep 08/21/2023 2:10 PM CDT 08/22/2023 3:31 AM CDT Nikki Paz NP LAB CYTOLOGY ORDERABLES Final Re sult [facility] [address] [place]orne [address] [facility] [address] [facility] [place] [address] from Last 3 Months or Most Recently Relevant to Health Maintenance Insurance [facility] [facility] [id number] [facility] [id number] [facility] [place] [address] , [place] [address] WORKERS COMPENSATION [employer]IC [employer] [facility] Care Teams Mold Clamper Relationship Specialty Start Date End Date Prakash Perkins MD PCP - General Family Practice 04/20/22
[2024-09-16 18:54] LABS: Add Urine Microscopic? NO; Appearance Urine Clear (Clear); Glucose Urine UA Negative (Negative); Leukocyte Esterase Ur Negative LEU/UL (Negative); Nitrate Urine Negative (Negative); Specific Grav Ur 1.005 (1.001-1.035)
[2024-09-16 18:55] LABS: Hematocrit 40.9 % (37.0-47.0); Hemoglobin 13.3 g/dL (12.0-15.0); Immature Granulocyte Percent A 0.4 % (0-0.5); Lymphocytes Absolute Auto 1.47 K/mm3 (0.9-3.2); Mean Corpuscular HGB Conc 32.5 g/dl (32-36); Mean Corpuscular Hemoglobin 31.1 pg (26-34); Mean Corpuscular Volume 95.6 fl (80-100); Nucleated Red Blood Cells Absolute Auto 0.000 K/mm3 (0.0-0.012); Nucleated Red Blood Cells Perc 0.0 % (0.0-0.2); Platelet Count Result 280 k/mm3 (150-375); Red Blood Count 4.28 M/mm3 (4.2-5.4); White Blood Count 5.1 K/mm3 (4.5-10.0)
[2024-09-16 19:37] LABS: Alanine Aminotransferase 22 U/L (6-35); Albumin Level 4.6 g/dL (3.5-5.1); Alkaline Phosphatase 40 U/L (38-126); Anion Gap 8 mmol/L (4-12); Aspartate Amino Transferase 57 U/L (14-36); Bilirubin,Total 0.4 mg/dL (0.2-1.3); Blood Urea Nitrogen 8 mg/dL (7-17); Calcium 9.8 mg/dL (8.4-10.2); Carbon Dioxide 28 mmol/L (22-30); Chloride 103 mmol/L (98-107); Estimated Glomerular Filt Rate > 60; Glucose 82 mg/dL (65-110); Magnesium 2.3 mg/dL (1.6-2.3); Potassium 4.3 mmol/L (3.4-5.0); Sodium 139 mmol/L (137-145); Total Protein 8.0 g/dL (6.3-8.2)
[2024-09-16 19:51] LABS: Thyroid Stimulating Hormone 0.808 uIU/mL (0.465-4.680)
[2024-09-16 20:10] LABS: Vitamin B12. 951.0 pg/mL (239-931)
[2024-09-16 20:14] LABS: Free T4 Free Thyroxine. 1.17 ng/dL (0.78-2.19)
== END 2024-09-16 11:03 | disposition home or self-care (01) ==
LOC: ANHBWCLAB 11:24
PROVIDERS: PCP Family Medicine; Visit Provider Family Medicine
DX: N30.90 Cystitis, unspecified without hematuria (principal); R74.01 Elevation of levels of liver transaminase levels; R07.89 Other chest pain; R06.00 Dyspnea, unspecified; E55.9 Vitamin D deficiency, unspecified; R94.6 Abnormal results of thyroid function studies; Z00.00 Encounter for general adult medical examination without abnormal findings; G47.26 Circadian rhythm sleep disorder, shift work type
CPT/HCPCS: 36415; 80053; 81003; 82248; 82306; 82607; 83735; 84439; 84443; 85025; 87086